=== PATIENT | female | born 1980 | race Caucasian/White ===

== ENCOUNTER 2019-10-11 11:39 | Emergency (ER) | payer SELFPAY ==
[2019-10-11 12:04] VITALS: BP 174/111; PULSE 85; RESP 16; TEMP 36.8; O2SAT 99; BMI 26.6
--- NOTE | 2019-10-11 12:04 | W.ED.ANXIETY ---
HPI - Anxiety General: Chief Complaint: Anxiety Stated Complaint: Anxiety Time Seen by Provider: 10/11/19 12:04 History of Present Illness: HPI narrative: Pt states she has had panic attacks for a long time, and they are much worse right now. She is having financial problems. 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 Today she had an episode where she had chest pain, she was seating profusely and her hands got tingly. She got shaky. She states as soon as she got here she started to feel better. She was unable to continue to work so she came here. MD complaint: anxiety, heart racing and shortness of breath Onset (ago): hour(s) (1) Symptoms: dyspnea, chest pain, palpitations, extremity numbness/tingling and sense of impending doom Severity: similar to previous episodes Quality: intermittent Place: work History of similar episodes: Yes Provoking factors: emotional stress and work/job stress Relieving factors: nothing Exacerbating factors: nothing Associated symptoms: Reports chest pain and diaphoresis; Deny headache(s), nausea or vomiting Review of Systems General: Reports: 10 or more systems reviewed and unremarkable except in HPI and below Const: Reports: diaphoresis ENMT: Denies: throat pain Card: Reports: chest pain Resp: Reports: shortness of breath GI: Denies: abdominal pain, nausea, vomiting, diarrhea, constipation or blood in stool : Denies: difficulty urinating Musc: Denies: back pain or extremity swelling Skin/Breast: Reports: other (diaphoresis); Denies: rash Neuro: Denies: headache, numbness in extremities or weakness in extremities Psych: Reports: anxiety, depression and loss of interest; Denies: suicidal ideation PFS ED PFSH: Social History Smoking and tobacco status: current every day smoker Physical Exam Const: COMMON NORMALS: no apparent distress and oriented x3 GENERAL APPEARANCE: cooperative; not in distress HENMT: COMMON NORMALS: normocephalic HEAD & SCALP: normal to inspection and normocephalic MOUTH: oral and palatal mucosa normal and lip normal THROAT: posterior oropharynx normal and tonsils normal Neck/C-Spine: COMMON NORMALS: full ROM, no lymphadenopathy, supple and no meningeal signs GENERAL: Yes normal visual inspection and Yes trachea midline Chest: COMMONS NORMALS: inspection of chest normal Resp: COMMON NORMALS: normal respiratory effort and clear to auscultation bilaterally EFFORT & INSPECTION: Yes able to speak in complete sentences and No respiratory distress AUSCULTATION: clear to auscultation bilaterally, no rales, no rhonchi and no wheezes Cardio: COMMON NORMALS: regular rate, regular rhythm, S1 normal heart sound, S2 normal heart sound and no murmurs RATE: regular rate RHYTHM: regular rhythm HEART SOUNDS: S1 normal and S2 normal PERIPHERAL PULSES: radial pulses present and dorsalis pedis pulses present GI: COMMON NORMALS: normal to inspection, nondistended, normoactive bowel sounds, soft to palpation and non-tender INSPECTION: Yes normal to inspection AUSCULTATION: Yes normoactive bowel sounds PALPATION: Yes soft, No tender, No guarding and No rigid RECTAL EXAM: deferred : COMMON NORMALS: Yes no CVA tenderness BLADDER/KIDNEY EXAM: Yes no CVA tenderness Back/Pelvis: COMMON NORMALS: no CVA tenderness Extremity: COMMON NORMALS: normal to inspection, full ROM, normal capillary refill, no calf tenderness and no pedal edema Neuro: COMMON NORMALS: oriented x3, CN's II-XII intact bilaterally, moves all extremities and no focal motor deficits MENINGEAL SIGNS: Yes no meningeal signs Skin: COMMON NORMALS: no rashes or lesions noted GENERAL SKIN EXAM: no rashes or lesions noted Course Vital Signs: Vital signs: Vital Signs Temperature 98.2 F 10/11/19 12:04 Pulse Rate 85 10/11/19 12:04 Respiratory Rate 16 10/11/19 12:04 Blood Pressure 174/111 10/11/19 12:04 Pulse Oximetry 99 10/11/19 12:04 MDM - Anxiety MDM Narrative: Medical decision making narrative: Pt has had anxiety and has very frequent panic attacks that affect her ability to work. I have d/w her that she needs to be seen by [facility] to get started on daily meds to help prevent these from occurring. However I will start her on clonazepam. She has a neg troponin and unremarkable ecg. I will send her home. She is very low risk for acs Heart score is 1 EKG Data^: EKG 1: Attestation: I personally reviewed and interpreted this EKG as follows: EKG interpretation date: 10/11/19 EKG interpretation time: 12:45 Interpretation: Pt has nsr with a rate of 80. normal ecg, normal st segments Lab Data: Labs: Lab Results 10/11/19 Range/Units 12:36 Troponin T Baselin e 6 (0-10) ng/mL Discharge Plan Discharge Patient Disposition: Home, Self-Care Clinical Impression: Acute anxiety, Hyperventilation Condition: Stable Prescriptions: New clonazepam 0.5 mg tablet 0.5 mg PO BID PRN (Reason: anxiety) Qty: 20 RF: 0 No Action No Known Home Medications RF: 0 Discharge Orders: Discharge Order (Routine); Ordered 10/11/19 Ordered By: Kim Schneider Referrals[facility], [Staff Physician] - 1-3 days Discharge Diet: Regular Discharge Activity: Increase activity as tolerated Patient Instructions: Anxiety (ED) Activity Restrictions/Additional Instructions: You are to f/u with C as instructed. Return if worse, any problem, any change. Coding Level of Care Code ED Stencil Printer for Zack Fwd Exam Comprehensive
[2019-10-11 13:07] LABS: Troponin(5th) Baseline 6 ng/mL (0-10)
--- NOTE | 2019-10-11 13:29 | DCPLANNER ---
customer marketing manager was asked to speak with patient about services at [facility]. customer marketing manager called [facility] to confirm if patient was a patient at [facility], rn case manager hospice was told that patient was not a patient at [facility], that she would have to complete the initial assessment. customer marketing manager was told that to complete the initial assessment, that patient would need to go to [facility], picker tender the initial assessment paperwork and fill it out and turn it in. [facility] would call patient and set up an initial assessment over the phone. customer marketing manager informed ED physician, and patient what patient would need to do to start services at [facility]. Patient stated that she did not have insurance at this time, rn case manager hospice gave patient both of the financial assistant applications for the hospital to fill out and turn back in.
[2019-10-11 13:44] VITALS: BP 145/83; PULSE 89; RESP 17; O2SAT 97
--- NOTE | 2019-10-11 18:23 | ECG_ITS ---
Measurements Intervals [place] Rate: 80 P: 19 ME: 128 QRS: 54 QRSD: 88 T: 21 QT: 374 QTc: 434 SINUS RHYTHM No previous ECG available for comparison Electronically Signed On 10-11-2019 15:37:30 CDT by Jordan Best M.D. [email or web address]
== END 2019-10-11 13:45 | disposition home or self-care (01) ==
LOC: ER 18:01
PROVIDERS: Emergency Provider Emergency Medicine
DX: F41.9 Anxiety disorder, unspecified (principal); R06.4 Hyperventilation
CPT/HCPCS: 12345; 36415; 84484; 93005; 99281; 99283

== ENCOUNTER 2021-10-15 08:56 | Emergency (ER) | payer SELFPAY ==
[2021-10-15 09:11] VITALS: BP 139/93; PULSE 81; RESP 21; TEMP 36.8; O2SAT 100; BMI 27.4
--- NOTE | 2021-10-15 09:29 | ED_ITS ---
HPI - Back Pain/Injury General: Chief Complaint: Back Pain/Injury Stated Complaint: back injury Time Seen by Provider: 10/15/21 08:59 Source: patient Mode of arrival: ambulatory Limitations: no limitations History of Present Illness: 41-year-old female comes in complaining of low back pain. She has history of chronic recurrent low back pain is flared up now. She not had any vomiting or diarrhea she has difficult time moving because of the severity of the pain initially. She denies any urinary retention or fecal incontinence. MD elicited complaint: back pain Pertinent past history: prior back pain Onset (ago): hour(s) Timing: constant Severity: severe Similar Symptoms Previously: Yes Quality: stabbing and spasming Location: lumbar spine Radiation: left upper leg and right upper leg Exacerbating factors: movement, sitting upright, walking and lifting Relieving factors: supine Context: bending Associated symptoms: Reports other; Deny abdominal pain, arthralgias, chills, change in bowel habits, difficulty walking, dysuria, fatigue, fecal incontinence, fever(s), hematuria, myalgias, nausea, numbness, syncope, tingling/numbness/burning, urinary urgency, vomiting or weakness Review of Systems Const: Denies: fever(s), chills, body aches or fatigue ENMT: Denies: throat pain, ear or mastoid pain, nasal discharge or nasal con gestion Card: Denies: chest pain, palpitations or syncope Resp: Denies: dyspnea, productive cough or non-productive cough GI: Denies: abdominal pain, nausea, vomiting, fecal incontinence or change in bowel habits : Denies: flank pain, difficulty voiding, dysuria, urinary frequency, urinary urgency or hematuria Musc: Reports: back pain and extremity pain Skin/Breast: Denies: rash or pruritus Neuro: Denies: difficulty walking PFSH ED PFSH: Medical History (Updated 10/15/21 @ 13:28 by Nicolas Cosme DO) Chronic back pain Social History Smoking and tobacco status: current every day smoker Female Reproductive History: Date of last menstrual period: 10/07/19 Physical Exam Const: COMMON NORMALS: no acute distress GENERAL APPEARANCE: cooperative and comfortable ORIENTATION/CONSCIOUSNESS: Yes awake, Yes oriented to person, Yes oriented to place and Yes oriented to time HENMT: COMMON NORMALS: normocephalic, atraumatic and hearing grossly normal bilaterally HEAD & SCALP: normocephalic and atraumatic Neck/C-Spine: COMMON NORMALS: no JVD Resp: COMMON NORMALS: normal respiratory effort, No retractions, No use of accessory muscles and clear to auscultation bilaterally AUSCULTATION: clear to auscultation bilaterally Cardio: COMMON NORMALS: no JVD, regular rate, regular rhythm and No murmurs present (Cardio) RATE: regular rate RHYTHM: regular rhythm GI: COMMON NORMALS: Soft to palpation and No hepatosplenomegaly present AUSCULTATION: Yes normoactive bowel sounds PALPATION: Yes Soft to palpation, No Tenderness to palpation present (GI), No Guarding due to palpation present (GI) and Yes No hepatosplenomegaly present Extremity: COMMON NORMALS: normal to inspection, capillary refill normal, no clubbing, cyanosis or edema, no calf tenderness and no pedal edema Neuro: SENSORIUM/ORIENTATION: Yes oriented to person, Yes oriented to place and Yes oriented to time MOTOR EXAM: 5/5 motor strength present throughout DEEP TENDON REFLEXES: Right patellar reflex intensity grade: 3+ and Left patellar reflex intensity grade: 3+ Skin: COMMON NORMALS: no rashes or lesions noted GENERAL SKIN EXAM: no rashes or lesions noted Course Vital Signs: Vital signs: Vital Signs Temperature 98.2 F 10/15/21 09:11 Pulse Rate 81 10/15/21 09:11 Respiratory Rate 18 10/15/21 11:53 Blood Pressure 139/93 10/15/21 09:11 Pulse Oximetry 97 10/15/21 11:53 MDM - Back Pain/Injury Medical Decision Making Patient has radicular symptoms but no sign of significant pain treatment at this time. She is better from medications will discharge home. Reviewed CT findings with her we will have her set up for a outpatient referral to PCP if she is not improving they can make arrangements for more advanced imaging if needed. Medical Records I reviewed the patient's medical records. Labs I reviewed the patient's lab results. : 10/15/21 09:40 10/15/21 09:40 Radiology Impressions Lumbar Spine CT 10/15/21 09:30 IMPRESSION: 1. No high-grade stenosis or fracture. 2. Shallow central disc protrusion at L4-5 with mild subarticular recess narrowing. 3. Minimal disc bulging at L5-S1 with minimal contact on the S1 nerve roots. Laboratory Results WBC 5.6 10^3/uL (4.0-10.0) 10/15/21 09:40 RBC 4.16 10^6/uL (4.1-5.3) 10/15/21 09:40 Hgb 13.9 g/dL (11.5-15.3) 10/15/21 09:40 Hct 40.2 % (37.0-47.0) 10/15/21 09:40 MCV 96.6 fl (81-99) 10/15/21 09:40 MCH 33.4 pg (28.0-34.0) 10/15/21 09:40 MCHC 34.6 g/dL (30.0-36.0) 10/15/21 09:40 RDW 11.9 % (12.1-15.1) L 10/15/21 09:40 Plt Count 254 10^3/cmm (130-400) 10/15/21 09:40 MPV 10.9 fL (7.4-10.4) H 10/15/21 09:40 Neut % (Auto) 56.6 % 10/15/21 09:40 Lymph % (Auto) 31.5 % 10/15/21 09:40 [place] % (Auto) 8.8 % 10/15/21 09:40 Eos % (Auto) 2.2 % 10/15/21 09:40 Baso % (Auto) 0.5 % 10/15/21 09:40 Neut # (Auto) 3.15 10^3/uL (1.8-7.7) 10/15/21 09:40 Lymph # (Auto) 1.8 10^3/uL (0.8-4.8) 10/15/21 09:40 [place] # (Auto) 0.5 10^3/uL (0.2-0.9) 10/15/21 09:40 Eos # (Auto) 0.1 10^3/uL (0.0-0.8) 10/15/21 09:40 Baso # (Auto) 0.0 10^3/uL (0.0-0.1) 10/15/21 09:40 Nucleated RBC % (auto) 0 % 10/15/21 09:40 Nucleated RBCs # 0.0 /100WBC 10/15/21 09:40 Sodium 138 mmol/L (136-145) 10/15/21 09:40 Potassium 3.3 mmol/L (3.5-5.1) L 10/15/21 09:40 Chloride 108 mmol/L (98-107) H 10/15/21 09:40 Carbon Dioxide 19 mmol/L (22-29) L 10/15/21 09:40 Anion Gap 14.3 (5-19) 10/15/21 09:40 BUN 8 mg/dL (6-20) 10/15/21 09:40 Creatinine 0.5 mg/dL (0.5-0.9) 10/15/21 09:40 GFR Calculation 136.0 mL/min (90-130) H 10/15/21 09:40 Glucose 98 mg/dL (65-115) 10/15/21 09:40 Calculated Osmolality 284 mOsm/kg (285-295) L 10/15/21 09:40 Calcium 8.9 mg/dL (8.5-10.5) 10/15/21 09:40 Total Bilirubin 0.3 mg/dL (0.15-1.2) 10/15/21 09:40 AST 18 U/L (0-32) 10/15/21 09:40 ALT 27 U/L (0-33) 10/15/21 09:40 Alkaline Phosphatase 74 IU/L (35-105) 10/15/21 09:40 Total Protein 6.2 g/dL (6.6-8.7) L 10/15/21 09:40 Albumin 4.0 g/dL (3.5-5.2) 10/15/21 09:40 Globulin 2.2 g/dL (1.3-4.6) 10/15/21 09:40 Discharge Plan Discharge Patient Disposition: Home Clinical Impression: Lumbar radiculopathy Condition: Stable Prescriptions: New hydrocodone-acetaminophen 5-325 mg tablet 1 tab PO Q6H PRN (Reason: pain) Qty: 15 0RF diclofenac sodium 75 mg tablet,delayed release (DR/EC) 75 mg PO Q12H PRN (Reason: pain) Qty: 20 0RF tizanidine 4 mg capsule 4 mg PO Q8H PRN (Reason: muscle spasticity) Qty: 30 0RF prednisone 20 mg tablet 20 mg PO TID Qty: 15 0RF Rx Instructions: 1 p.o. 3 times daily x3 days 1 p.o. twice daily x2 days 1 p.o. daily x2 days No Action Tylenol Ex Str Rapid Release 500 mg Tablet 500 mg PO Q6H PRN (Reason: Pain) 0RF Vitamin C 500 mg Tablet 500 mg PO DAILY 0RF Vitamin B-12 1 tab PO DAILY 0RF Discharge Orders: Discharge ED (Routine); Ordered 10/15/21 Ordered By: Nicolas Cosme Discharge Diet: Usual diet Discharge Activity: Limit activity as instructed Patient Instructions: Opioid Safety Activity Restrictions/Additional Instructions: project manager retail will make arrangements for you to establish with a primary care physician. Stand Alone Forms: Work/School Release Coding Level of Care Code ED Variety Lathe Operator for Zack Wade
--- NOTE | 2021-10-15 09:30 | CT_ITS ---
WS: [id number] CT LUMBAR SPINE, noncontrast. HISTORY: back pain TECHNIQUE: Contiguous 2.5 mm axial imaging are performed. Sagittal and coronal reformats are submitte d and reviewed. All CT scans at [facility] use at least one of these dose optimization techni ques: automated exposure control; mA and/or kV adjustment per patient size (includes targeted exams w here dose is matched to clinical indication); or iterative reconstruction. IV contrast: None DLP: 2139.79 mGy.cm COMPARISON: None available. Normal posterior alignment with very mild straightening. No fractures. Disc spaces are normal. L1-2: Normal. L2-3: Normal. L3-4: Minimal annular disc bulging and facet arthritis. L4-5: Shallow central disc protrusion contacting the ventral thecal sac with mild deformity. Mild sub articular recess narrowing. L5-S1: Minimal disc bulging. There is very slight contact on the S1 nerve root but no displacement. Visualized retroperitoneum is normal. CT/CT lumbar spine wo con* [id number] IMPRESSION: 1. No high-grade stenosis or fracture. 2. Shallow central disc protrusion at L4-5 with mild subarticular recess narro wing. 3. Minimal disc bulging at L5-S1 with minimal contact on the S1 nerve roots.
[2021-10-15 09:47] LABS: Basophils % 0.5 %; Eosinophils # 0.1 10^3/uL (0.0-0.8); Eosinophils % 2.2 %; Hematocrit 40.2 % (37.0-47.0); Hemoglobin 13.9 g/dL (11.5-15.3); Lymphocytes # 1.8 10^3/uL (0.8-4.8); Lymphocytes % 31.5 %; Mean Corpuscular HGB Conc 34.6 g/dL (30.0-36.0); Mean Corpuscular Hemoglobin 33.4 pg (28.0-34.0); Mean Corpuscular Volume 96.6 fl (81-99); Mean Platelet Volume 10.9 fL (7.4-10.4); Monocytes # 0.5 10^3/uL (0.2-0.9); Monocytes % 8.8 %; Neutrophils # 3.15 10^3/uL (1.8-7.7); Neutrophils % 56.6 %; Nucleated Red Blood Cells % 0 %; Platelet Count 254 10^3/cmm (130-400); Red Blood Count 4.16 10^6/uL (4.1-5.3); Red Cell Distribution Width 11.9 % (12.1-15.1); White Blood Count 5.6 10^3/uL (4.0-10.0)
[2021-10-15 09:52] VITALS: RESP 18
[2021-10-15] MEDS: ondansetron 2 mg/ML SDV 2 mL 4 MG IVP (09:52)
[2021-10-15] MEDS: morphine 4 mg/mL SDV 1 mL IVP ×2 (09:52→11:53)
[2021-10-15 10:16] LABS: Alanine Aminotransferase 27 U/L (0-33); Alkaline Phosphatase 74 IU/L (35-105); Anion Gap 14.3 (5-19); Aspartate Amino Transferase 18 U/L (0-32); Blood Urea Nitrogen 8 mg/dL (6-20); Calcium 8.9 mg/dL (8.5-10.5); Carbon Dioxide 19 mmol/L (22-29); Chloride 108 mmol/L (98-107); Globulin 2.2 g/dL (1.3-4.6); Glucose 98 mg/dL (65-115); Osmolality Calculated 284 mOsm/kg (285-295); Potassium 3.3 mmol/L (3.5-5.1); Sodium 138 mmol/L (136-145); Total Bilirubin 0.3 mg/dL (0.15-1.2); Total Protein 6.2 g/dL (6.6-8.7)
[2021-10-15] MEDS: ketorolac 30 mg/mL INJ IVP (10:48)
[2021-10-15] MEDS: dexamethasone 10 mg/mL INJ IVP (10:48)
[2021-10-15 10:49] VITALS: RESP 18
[2021-10-15] MEDS: orphenadrine 30 mg/mL Inj 2 mL 60 MG IVP (10:49)
[2021-10-15] MEDS: morphine 4 mg/mL SDV 1 mL 6 MG IVP (10:49)
[2021-10-15 11:53] VITALS: RESP 18; O2SAT 97
--- NOTE | 2021-10-23 13:42 | DCPLANNER ---
insurance office manager had message to speak with patient about getting established with a primary care physician, unable to speak with patient or leave a voicemail at this time.
== END 2021-10-15 12:07 | disposition home or self-care (01) ==
PROVIDERS: Emergency Provider Family Medicine
DX: M54.16 Radiculopathy, lumbar region (principal); F17.200 Nicotine dependence, unspecified, uncomplicated
CPT/HCPCS: 72131; 80053; 85025; 96374; 96375; 96376; 99284; J1100; J1885; J2270; J2360; J2405